=== PATIENT | male | born 1975 | race Caucasian/White ===

== ENCOUNTER 2022-06-08 08:11 | Emergency (ER) | payer BC, SELFPAY ==
[2022-06-08] VITALS (30 sets, daily range): BP systolic 115–141; BP diastolic 74–97; PULSE 53–71; RESP 11–20; TEMP 36.5–37; O2SAT 96–100
--- NOTE | 2022-06-08 08:15 | RT.EKG_ITS ---
APPROVED REPORT Exam: Resting ECG Reason for Exam: chest tightness/syncope Patient Location: E HR:69 bpm ECG Measurements Heart Rate 69 AXIS GA 140 P 47 QRSd 99 QRS -21 QT 403 T 25 QTc 432 Conclusion Sinus rhythm...normal P axis, V-rate 60- 99
--- NOTE | 2022-06-08 09:04 | ED.GENADUL_ITS ---
Discharge Plan Disposition Patient Disposition: HOME Condition: Stable Discharge Details Clinical Impression: Pre-syncope, Abdominal pain Primary Care Provider: Amber,Local ED Provider: Francisco Hernandez Home Meds and New Rx's Prescriptions: Continued Advil Dual Action 125-250 mg tablet 1 tab PO Q8H PRN multivitamin [Daily Multi-Vitamin] Tablet 1 tab PO DAILY Discharge Instructions Instructions: Abdominal Pain (ED), Near Syncope (ED) Additional Instructions: Please rest over the next 2 days. No exertional activities. Please contact your primary care physician to arrange follow-up. Return to the ER immediately for any worsening or new concerning symptoms. Medical Decision Making 914 --47-year-old male here with after sudden onset presyncope with associated epigastric abdominal pain. Patient continues to have lightheadedness and pain at this time. Patient has had intermittent chest tightness over the time 2 weeks. Patient is hemodynamically stable. EKG was reviewed and interpreted by me: Sinus rhythm 69 bpm, normal axis, nondiagnostic. Consider ACS. I will check troponin. Patient does have epigastric abdominal tenderness. Consider acute pancreatitis. Consider acute aortic aneurysm. Plan to obtain CT of the thorax abdomen pelvis. 1300 --labs reviewed and mild leukocytosis noted. Nondiagnostic. Initial troponin negative. -- CT of the chest and abdomen and pelvis interpreted by radiology: No dissection, no pulmonary embolism, no acute or concerning findings noted by Dr. Finch. Patient was reassessed after IV fluid and feeling better. Lightheadedness completely resolved. Still has some abdominal cramping. Patient is wondering if symptoms are related to anxiety. I discussed this with him and he notes he is under a lot of stress at work. Denies suicidal thoughts. Repeat troponin negative. EKG repeated, reviewed and interpreted by me: Sinus bradycardia 55 bpm, nondiagnostic. Plan for discharge with outpatient follow-up. Patient not have a PCP. I will ask that care management assist in arranging outpatient follow-up over the next week. Usual customary discharge instructions reviewed with the patient. He understands he should return immediately should any worsening or new concerning symptoms. Lab Data Lab results reviewed: Yes I reviewed the patient's lab results. Labs: Laboratory Tests Range/Units 06/08/22 06/08/22 06/08/22 08:30 08:30 08:30 WBC (4.4-10.8) 10^3/uL 13.88 H RBC (4.36-5.78) 10^6/uL 5.40 Hgb (13.5-17.5) g/dL 15.8 Hct (40.0-50.0) % 47.8 MCV (80-95) fL 89 MCH (27.0-33.0) pg 29.3 MCHC (32.0-36.0) % 33.1 RDW (11.8-14.1) % 12.8 Plt Count (130-400) 10^3/uL 303 MPV (8.0-11.0) fL 10.0 Immature Gran % 0.4 Neutrophils % 81.3 Lymphocytes % 10.5 Monocytes % 5.9 Eosinophils % 1.5 Basophils % 0.4 Nucleated RBC % (0.0-0.3) % 0.0 Absolute Neutrophils (1.2-6.7) 10^3/uL 11.28 H Absolute Lymphocytes (1.2-3.4) 10^3/uL 1.46 Absolute Monocytes (0.1-0.8) 10^3/uL 0.82 H Absolute Eosinophils (0.0-0.7) 10^3/uL 0.21 Absolute Basophils (0.0-0.2) 10^3/uL 0.06 Sodium (136-145) mmol/L 141 Potassium (3.5-5.1) mmol/L 4.6 Chloride (98-107) mmol/L 103 Carbon Dioxide (21.0-32.0) mmol/L 30.2 Anion Gap (3-11) mmol/L 7.8 BUN (7-18) mg/dL 13 Creatinine (0.70-1.30) mg/dL 0.7 Est GFR (CKD-EPI 2020) (mL/min/1.73m2) 115.08 Glucose (74-106) mg/dL 104 Calcium (8.5-10.1) mg/dL 8.9 Magnesium (1.8-2.4) mg/dL 2.0 Total Bilirubin (0.2-1.0) mg/dL 0.8 AST (15-37) U/L 25 ALT (16-63) U/L 29 Alkaline Phosphatase (46-116) U/L 48 Troponin I (<or=60) ng/L < 50 Total Protein (6.4-8.2) g/dL 7.6 Albumin (3.4-5.0) g/dL 4.0 Lipase (73-393) U/L 65 Urine Color (Yellow) Urine Clarity (Clear) Urine pH (5-8) Ur Specific [place] (1.005-1.025) Urine Protein (Negative) mg/dL Urine Ketones (Negative) mg/dL Urine Blood (Negative) Urine Nitrite (Negative) Urine Bilirubin (Negative) Urine Urobilinogen (Up TO 0.2) EU/dL Ur Leukocyte Esterase (Negative) Urine Glucose (Negative) mg/dL Patient ABO/Rh O Positive Antibody Screen NEGATIVE Range/Units 06/08/22 06/08/22 06/08/22 08:30 09:15 13:23 WBC (4.4-10.8) 10^3/uL RBC (4.36-5.78) 10^6/uL Hgb (13.5-17.5) g/dL Hct (40.0-50.0) % MCV (80-95) fL MCH (27.0-33.0) pg MCHC (32.0-36.0) % RDW (11.8-14.1) % Plt Count (130-400) 10^3/uL MPV (8.0-11.0) fL Immature Gran % Neutrophils % Lymphocytes % Monocytes % Eosinophils % Basophils % Nucleated RBC % (0.0-0.3) % Absolute Neutrophils (1.2-6.7) 10^3/uL Absolute Lymphocytes (1.2-3.4) 10^3/uL Absolute Monocytes (0.1-0.8) 10^3/uL Absolute Eosinophils (0.0-0.7) 10^3/uL Absolute Basophils (0.0-0.2) 10^3/uL Sodium (136-145) mmol/L Potassium (3.5-5.1) mmol/L Chloride (98-107) mmol/L Carbon Dioxide (21.0-32.0) mmol/L Anion Gap (3-11) mmol/L BUN (7-18) mg/dL Creatinine (0.70-1.30) mg/dL Est GFR (CKD-EPI 2020) (mL/min/1.73m2) Glucose (74-106) mg/dL Calcium (8.5-10.1) mg/dL Magnesium (1.8-2.4) mg/dL Total Bilirubin (0.2-1.0) mg/dL AST (15-37) U/L ALT (16-63) U/L Alkaline Phosphatase (46-116) U/L Troponin I (<or=60) ng/L < 50 Total Protein (6.4-8.2) g/dL Albumin (3.4-5.0) g/dL Lipase (73-393) U/L Cancelled Urine Color (Yellow) Yellow Urine Clarity (Clear) Clear Urine pH (5-8) 7.0 Ur Specific [place] (1.005-1.025) 1.020 Urine Protein (Negative) mg/dL Negative Urine Ketones (Negative) mg/dL Negative Urine Blood (Negative) Negative Urine Nitrite (Negative) Negative Urine Bilirubin (Negative) Negative Urine Urobilinogen (Up TO 0.2) EU/dL 0.2 Ur Leukocyte Esterase (Negative) Negative Urine Glucose (Negative) mg/dL Negative Patient ABO/Rh Antibody Screen HPI General Mode of arrival: ambulatory . Date/Time Provider Initiated Documentation: 06/08/22 08:30 . Limitations to Documentation: no limitations . Information obtained by: patient . HPI Narrative: 47-year-old male presents with chief complaint of dizziness. Patient notes he was at work around 4 AM ambulating when he suddenly felt dizzy. Patient notes room started to spin and he felt lightheaded like he was going to pass out. He fell to his hands and knees. He did not lose consciousness. Symptoms have improved but he continues to feel somewhat lightheaded even lying flat. He notes that he has had epigastric abdominal pain all day today that started prior to episode of lightheadedness. Pain feels sharp and localized to upper abdomen. Pain moderate intensity. Patient denies associated bright red blood per rectum or melena. Patient also notes some intermittent chest tightness, nonpleuritic, over the past 2 weeks. He has no chest pain at this time. No associated leg swelling or leg pain. Patient denies headache. No numbness or tingling. No focal weakness. Related Data Home Medications Medication Instructions Recorded Confirmed ibuprofen 125 mg-acetaminophen 250 1 tab PO Q8H PRN 10/14/21 06/08/22 mg tablet (Advil Dual Action) multivitamin (Daily Multi-Vitamin 1 tab PO DAILY 04/21/22 06/08/22 tablet) Allergies Allergy/AdvReac Type Severity Reaction Status Date / Time No Known Allergies Allergy Verified 06/08/22 08:23 General Stated Complaint: Dizzy/Sync KIM: 3 Review of Systems All systems reviewed & are unremarkable except as noted in HPI and below Constitutional Constitutional: Denies fever(s) Gastrointestinal Gastrointestinal: Reports as per HPI and Reports nausea (earlier) PFSH All Active Problems (Updated 06/08/22 @ 14:08 by Francisco Hernandez MD) Pre-syncope (Acute) Abdominal pain (Acute) Cutaneous skin tags (Acute) Cyst of skin (Acute) Sebaceous cyst (Acute) Surgical History No significant past surgical history Social History Smoking/Tobacco Use Status: Never Smoking risk assessment performed?: Yes Alcohol Intake: current Alcohol Intake frequency: a few times a week Drug use: Never Substance use type: does not use Current gender identity: male Do you feel safe at home: Yes Do you feel safe in your relationship?: Yes Exam Const General: cooperative and no acute distress HENMT Mouth: mucous membranes dry Eyes Conjunctivae: normal conjunctivae Sclera: normal sclerae EOM: EOM intact bilaterally Neck Neck: trachea midline Resp Auscultation: clear to auscultation bilaterally, no rales, no rhonchi and no wheezes Cardio Rate: regular rate and not tachycardic Rhythm: regular rhythm GI Palpation: soft, not firm, no guarding, no masses, not rigid and tender in the epigastrum Auscultation: normal bowel sounds Skin General skin exam: no rashes or lesions noted Neuro General: patient alert, patient awake, patient oriented x3 and tone normal Cranial Nerves: CN's II-XI intact bilaterally Cognition: normal cognition Speech: speech normal Motor: muscle tone normal throughout and strength 5/5 throughout Sensory Exam: no sensory deficits noted Extrem General: no calf tenderness and no edema Psych Appearance: grossly normal Mental Status: mental status grossly normal Course Vital Signs Vital signs: Vital Signs Temperature 37.0 C 06/08/22 08:20 Pulse 71 06/08/22 08:20 Respiratory Rate 18 06/08/22 08:20 Blood Pressure 135/85 06/08/22 08:20 Pulse Oximetry 97 06/08/22 08:20 Temperature 37.0 C 06/08/22 08:20 Temperature Source Temporal Artery Scan 06/08/22 08:20 Pulse 71 06/08/22 08:20 Respiratory Rate 16 06/08/22 08:35 Respiratory Effort Non-Labored 06/08/22 08:35 Respiratory Depth Normal 06/08/22 08:35 Respiratory Pattern Normal 06/08/22 08:35 Blood Pressure 135/85 06/08/22 08:20 Blood Pressure Position Sitting 06/08/22 08:20 Pulse Oximetry 97 06/08/22 08:20 Oxygen Delivery Method Room Air 06/08/22 08:20 Oxygen Flow Rate 0 06/08/22 08:20 Pain Level 9 06/08/22 08:20 PAWSS Have you Been Recently Intoxicated or Drunk Within the Last 30 days?: No Have you Ever Experienced Previous Episodes of Alcohol Withdrawal?: No Have you ever Experienced Withdrawal Seizures?: No Have you ever Experienced Delirium Tremens(DT)s?: No Have you ever undergone Alcohol Rehabilitation Treatment (i.e, inpt ot outpatient treatment programs)?: No Have you ever Experienced Blackouts?: No Have you ever Combined Alcohol with other Downers within the last 90 days?: No Have you ever Combined Alcohol with any other Substance of Abuse during the last 90 days?: No Positive Blood Alcohol level on Presentation? [PCS.BAL]: No Evidence of Increased Autonomic Activity (i.e. HR>120, tremor, sweating, agitation, nausea)?: No Result: 0
[2022-06-08 09:12] LABS: Abs Immature Grans 0.05 10^3/uL (0.0-0.06); Absolute Basophil Count 0.06 10^3/uL (0.0-0.2); Absolute Eosinophil Count 0.21 10^3/uL (0.0-0.7); Absolute Lymphocyte Count 1.46 10^3/uL (1.2-3.4); Absolute Monocyte Count 0.82 10^3/uL (0.1-0.8); Absolute Neutrophil Count 11.28 10^3/uL (1.2-6.7); Basophils % 0.4; Eosinophils % 1.5; HCT 47.8 % (40.0-50.0); HGB 15.8 g/dL (13.5-17.5); Immature Grans % 0.4; Lymphocytes % 10.5; MCH 29.3 pg (27.0-33.0); MCHC 33.1 % (32.0-36.0); MCV 89 fL (80-95); Monocytes % 5.9; Neutrophils % 81.3; Platelet Count 303 10^3/uL (130-400); RDW 12.8 % (11.8-14.1); RDW-SD 41.8 fL; WBC 13.88 10^3/uL (4.4-10.8)
--- NOTE | 2022-06-08 09:15 | DI.CT_ITS ---
Exam(s) CT THORAX ABD/PEL CTA EXAM: CT THORAX ABD/PEL CTA CLINICAL HISTORY: presyncope, epigastric abd pain. TECHNIQUE: Imaging Protocol: Axial computed tomography images with coronal and sagittal reformatted images were created and reviewed CONTRAST MATERIAL: Intravenous: Omnipaque 350 Contrast volume:100 ml Oral: None COMPARISON: No exams were available for comparison FINDINGS: CHEST: The pulmonary vasculature is opacified enough to say that there are no intraluminal filling defects t o suggest presence of acute pulmonary emboli. Also no evidence of aortic dissection. LUNGS: Lungs are clear. No infiltrates. No pleural effusions. No ominous pulmonary nodules. There are no significant focal findings in the trachea and mainstem bronchi.. MEDIASTINUM: There is no hilar nor mediastinal adenopathy. CARDIAC: Heart size is normal. There is no pericardial effusion. No shift of the interventricular s eptum. Caliber thoracic aorta is within normal limits and there is no dissection. AORTA: Caliber of the thoracic aorta is within normal limits.There is no evidence of aortic dissectio n. ABDOMEN: There is no evidence of abdominal aortic aneurysm nor dissection.There is no aneurysmal dilatation of the common, external, and internal iliac arteries.The celiac and superior mesenteric arteries are pa tent.Both renal arteries patent without stenosis. Retroaortic left renal vein incidentally noted. I nferior mesenteric artery is patent. There is no ascites. LIVER: Liver is hypodense implying steatosis. No discrete focal hepatic lesions evident. GALLBLADDER/BILIARY: Gallbladder surgically absent. CBD diameter is upper normal/post cholecystectom y status. PANCREAS: No evidence of pancreatic mass nor dilatation of the pancreatic duct. SPLEEN: Spleen is not enlarged. There are no intrasplenic lesions. Splenic and portal veins are webb nt. ADRENALS: There are no significant adrenal masses. KIDNEYS: There is a small sub cm cyst in the lateral cortex of the right kidney. No calculi nor hydr onephrosis. No solid renal masses. ABDOMINAL AORTA: The abdominal aorta is not enlarged. LYMPH NODES: There is no retroperitoneal nor para-aortic adenopathy. No obvious mesenteric masses. ABDOMINAL WALL: No evidence of significant anterior abdominal wall hernia. GI: There is no evidence of bowel obstruction, free air, nor abscess. PELVIS: LYMPH NODES: There is no intrapelvic nor inguinal adenopathy. GI: No evidence of appendicitis.No evidence of sigmoid diverticulitis. URINARY BLADDER: No calculi nor masses evident REPRODUCTIVE: Prostate not enlarged. OSSEOUS: No significant osseous lesions. Previous lumbar spine fusion surgery at L4-5. IMPRESSION: 1. No evidence of aortic dissection. No aneurysm. 2. No obvious pulmonary emboli. Lungs are clear. 3. No acute findings in the abdomen and pelvis. 4. Previous cholecystectomy an L4-5 spine fusion surgery. Called by myself to ER physician RADIATION DOSE DELIVERED: 1,279.87mGy.cm Total DLP DATA REPOSITORY: All CT scans at this facility are submitted to the National Radiology Data Registry (NRDR) Dose Index Registry (DIR) with the [employer] (A[employer]). RADIATION OPTIMIZATION: All CT scans at this facility use at least one of these dose optimization te chniques: automated exposure control; mA and/or kV adjustment per patient size (includes targeted exa ms where dose is matched to clinical indication); or iterative reconstruction.
[2022-06-08 09:31] LABS: Bilirubin Negative (Negative); Blood Negative (Negative); Clarity Clear (Clear); Glucose Negative (Negative); Ketones Negative (Negative); Leukocyte Esterase Negative (Negative); Nitrite Negative (Negative); Urobilinogen 0.2 EU/dL (Up TO 0.2)
[2022-06-08] MEDS: Normal Saline - Diluent 50 ML VIAL IJ (09:32)
[2022-06-08] MEDS: Normal Saline Flush 10 ML SYR IVP ×2 (09:33→11:50)
[2022-06-08] MEDS: Omnipaque 350 MG/ML 500 ML BTL-Imaging package IJ (09:34)
[2022-06-08 09:43] LABS: ALT 29 U/L (16-63); AST 25 U/L (15-37); Alkaline Phosphatase 48 U/L (46-116); Anion Gap 7.8 mmol/L (3-11); BUN 13 mg/dL (7-18); Bilirubin, Total 0.8 mg/dL (0.2-1.0); CO2 30.2 mmol/L (21.0-32.0); CREATININE 0.7 mg/dL (0.70-1.30); Calcium 8.9 mg/dL (8.5-10.1); Chloride 103 mmol/L (98-107); Estimated GFR 115.08 (mL/min/1.73m2); Glucose 104 mg/dL (74-106); Lipase 65 U/L (73-393); Potassium 4.6 mmol/L (3.5-5.1); Sodium 141 mmol/L (136-145); Total Protein 7.6 g/dL (6.4-8.2); Troponin I < 50 ng/L (<or=60)
[2022-06-08] MEDS: Lactated Ringers 1,000 ML 1000 ML IV (10:23)
[2022-06-08] MEDS: Famotidine 20 MG TAB PO (11:49)
[2022-06-08] MEDS: Normal Saline 50 ML 200 ML (11:49)
[2022-06-08] MEDS: Mylanta Suspension 30 ML CUP PO (11:50)
--- NOTE | 2022-06-08 13:00 | RT.EKG_ITS ---
APPROVED REPORT Exam: Resting ECG Reason for Exam: 2ND EKG Patient Location: E HR:55 bpm ECG Measurements Heart Rate 55 AXIS VT 145 P 43 QRSd 100 QRS -23 QT 418 T 21 QTc 400 Conclusion Sinus bradycardia...rate< 60
[2022-06-08 13:55] LABS: Troponin I < 50 ng/L (<or=60)
--- NOTE | 2022-06-08 17:32 | NUR.NOTE ---
Nursing Note: referral to cm for pcp
== END 2022-06-08 14:19 | disposition home or self-care (01) ==
PROVIDERS: Emergency Provider Student in an Organized Health Care Education/Training Program
DX: R55 Syncope and collapse (principal); R10.13 Epigastric pain; R42 Dizziness and giddiness; D72.829 Elevated white blood cell count, unspecified
CPT/HCPCS: 36415; 71275; 80053; 83690; 86850; 86900; 86901; 93005; 96360; 99285; 74174; 81003; 83735; 84484; 85025; 93010

== ENCOUNTER 2022-09-08 11:47 | Outpatient (CLI) | payer BC, SELFPAY ==
--- OUTSIDE RECORDS SUMMARY | 2022-09-08 11:51 | XMS_ITS | Continuity of Care Document ---
Author Name Unknown Organization [facility] Address [address] [place] [address] Care Team Providers Care Business Operations Coordinator Name Role Phone CARLY SIBLEY NP Primary Care Physician Encounter [facility] NBR [id number] Date(s): 09/03/22 - 09/03/22 [facility] [address] [place] [address]- [place] Patient Care team information Personnel Name: CARLY SIBLEY NP Address: Address: [address] [place] [phone] [place]
[2022-09-08 12:43] LABS: Calculated LDL 73 mg/dL (<100); Cholesterol 148 mg/dL (<200); HDL Cholesterol 60 mg/dL (40-60); TSH (W/Ref FT4) 0.85 uIU/mL (0.36-3.74); Triglyceride 75 mg/dL (<150)
[2022-09-08 12:54] LABS: Hemoglobin A1C 6.1 % (<5.7)
== END 2022-09-08 11:48 | disposition home or self-care (01) ==
LOC: LBO 11:50
PROVIDERS: PCP Nurse Practitioner Family; Visit Provider Nurse Practitioner Family
DX: Z76.89 Persons encountering health services in other specified circumstances (principal)
CPT/HCPCS: 36415; 80061; 83036; 84443

== ENCOUNTER 2023-02-22 04:36 | Outpatient (CLI) | payer BC, SELFPAY ==
[2023-02-22 16:44] LABS: Anion Gap 6.5 mmol/L (3-11); BUN 22 mg/dL (7-18); CO2 30.5 mmol/L (21.0-32.0); CREATININE 0.9 mg/dL (0.70-1.30); Calcium 9.1 mg/dL (8.5-10.1); Chloride 102 mmol/L (98-107); Estimated GFR 106.67 (mL/min/1.73m2); Glucose 96 mg/dL (74-106); Potassium 4.3 mmol/L (3.5-5.1); Sodium 139 mmol/L (136-145)
== END 2023-02-22 04:37 | disposition home or self-care (01) ==
LOC: LBO 04:39
PROVIDERS: PCP Nurse Practitioner Family; Visit Provider Nurse Practitioner Family
DX: F41.3 Other mixed anxiety disorders (principal); E66.9 Obesity, unspecified; Z79.899 Other long term (current) drug therapy
CPT/HCPCS: 36415; 80048